=== PATIENT | male | born 1945 | race Caucasian/White ===

== ENCOUNTER → 2019-05-05 07:22 | Outpatient (CLI) | payer MEDICARE, SELFPAY ==
[2019-05-05 08:04] LABS: Add Manual Diff / Slide Review NO; Basophils Absolute Auto 0 /uL (0-100); Basophils Percent Auto 0.9 % (0-2); Eosinophils Absolute Auto 200 /uL (0-450); Eosinophils Percent Auto 3.6 % (2-4); Hematocrit 41.9 % (41-53); Hemoglobin 14.2 g/dL (13.5-17.5); Lymphocytes Absolute Auto 900 /uL (1100-4500); Lymphocytes Percent Auto 20.7 % (25-40); Mean Corpuscular HGB Conc 33.9 % (30-36); Mean Corpuscular Hemoglobin 28.8 PG (26-34); Monocytes Absolute Auto 500 /uL (0-900); Monocytes Percent Auto 12.1 % (3-14); Neutrophils Absolute Auto 2700 /uL (1500-7000); Neutrophils Percent Auto 62.7 % (50-75); Platelet Count 193 X10^3/uL (150-400); Red Blood Cell Count 4.93 X10^6/uL (4.5-5.9); Red Cell Distribution Width 14.8 % (11.6-14.8); White Blood Cell Count 4.2 X10^3/uL (4.5-11.0)
[2019-05-05 08:21] LABS: Alanine Aminotransferase 22 IU/L (<50); Albumin 3.7 g/dL (3.5-5.0); Albumin Globulin Ratio 1.4 (1.0-2.8); Alkaline Phosphatase 32 U/L (38-126); Aspartate Aminotransferase 29 IU/L (17-59); Bilirubin Total 0.5 mg/dL (0.2-1.3); Blood Urea Nitrogen 24 mg/dL (9-20); Calcium 8.9 mg/dL (8.4-10.2); Carbon Dioxide 31 mmol/L (22-32); Chloride 103 mmol/L (98-107); Cholesterol 259 mg/dL (140-199); Estimated Glomerular Filt Rate 58.9 mL/min (>60); Globulin 2.7 g/dL (1.7-4.1); Glucose 94 mg/dL (80-110); HDL Cholesterol 35 mg/dL (40-60); HEMOLYSIS < 15 (0-50); LDL Cholesterol Calculated 201 mg/dL (<100); Potassium 4.3 mmol/L (3.4-5.1); Sodium 138 mmol/L (137-145); Total Protein 6.4 g/dL (6.3-8.2); Triglycerides 114 mg/dL (35-150)
[2019-05-08 16:50] LABS: PSA, Total 0.8 ng/mL (< 4.1)
== END ==
PROVIDERS: Visit Provider Internal Medicine
DX: Z13.220 Encounter for screening for lipoid disorders (principal); Z13.9 Encounter for screening, unspecified; N40.1 Benign prostatic hyperplasia with lower urinary tract symptoms
CPT/HCPCS: 36415; 80053; 80061; 84153; 84154; 85025

== ENCOUNTER → 2020-10-06 16:13 | Outpatient (CLI) | payer MEDICARE, SELFPAY ==
[2020-10-06] MEDS: COVID-19 VACC #1, MRNA(PFIZER) 30 MCG/0.3 ML VIAL IM (16:22)
== END ==
PROVIDERS: Visit Provider Internal Medicine
DX: Z23 Encounter for immunization (principal)
CPT/HCPCS: 0001A; 91300

== ENCOUNTER → 2020-10-27 13:26 | Outpatient (CLI) | payer MEDICARE, SELFPAY ==
[2020-10-27] MEDS: COVID-19 VACC #2, MRNA(PFIZER) 30 MCG/0.3 ML VIAL IM (13:32)
== END ==
PROVIDERS: Visit Provider Internal Medicine
DX: Z23 Encounter for immunization (principal)
CPT/HCPCS: 0002A; 91300

== ENCOUNTER → 2020-11-10 10:20 | Outpatient (CLI) | payer MEDICARE, SELFPAY ==
--- NOTE | 2020-11-10 10:22 | DI.RAD.S_ITS ---
PROCEDURE: XR SHOULDER RT MIN 2V INDICATIONS: Right shoulder injury TECHNIQUE: 3 views of the shoulder were acquired. COMPARISON: None. FINDINGS: Bones: No fractures or dislocations. No suspicious bony lesions. Visualized ribs appear intact. Soft tissues: No suspicious soft tissue calcifications. IMPRESSION: No visualized acute fracture or dislocation. However, if clinical concern and/or pain persist, short interval imaging followup in 7-10 days is recommended, as occult injury cannot be definitively excluded. Dictated by: Bobbi Sultana M.D. on 11/10/2020 at 11:02 Approved by: Bobbi Sultana M.D. on 11/10/2020 at 11:03
[2020-11-10 11:32] LABS: Alanine Aminotransferase 21 IU/L (<50); Albumin 3.4 g/dL (3.5-5.0); Albumin Globulin Ratio 1.1 (1.0-2.8); Alkaline Phosphatase 29 U/L (38-126); Aspartate Aminotransferase 27 IU/L (17-59); Bilirubin Total 0.3 mg/dL (0.2-1.3); Bilirubin Unconjugated 0.3 mg/dL (0.0-1.1); Cholesterol 227 mg/dL (140-199); HDL Cholesterol 38 mg/dL (40-60); HEMOLYSIS < 15 (0-50); LDL Cholesterol Calculated 160 mg/dL (<100); Total Protein 6.4 g/dL (6.3-8.2); Triglycerides 146 mg/dL (35-150)
[2020-11-10 12:12] LABS: Vitamin D 25 Hydroxy (D3) 44.6 ng/mL (30.0-100.0)
== END ==
PROVIDERS: PCP Student in an Organized Health Care Education/Training Program; Referring Provider Student in an Organized Health Care Education/Training Program; Visit Provider Student in an Organized Health Care Education/Training Program
DX: I10 Essential (primary) hypertension (principal); E55.9 Vitamin D deficiency, unspecified; S49.91XA Unspecified injury of right shoulder and upper arm, initial encounter; X58.XXXA Exposure to other specified factors, initial encounter; Z13.220 Encounter for screening for lipoid disorders; Z79.899 Other long term (current) drug therapy
CPT/HCPCS: 36415; 73030; 80061; 80076; 82306

== ENCOUNTER 2021-02-19 11:53 | Emergency (ER) | payer MEDICARE, SELFPAY ==
[2021-02-19] VITALS (9 sets, daily range): BP systolic 140–186; BP diastolic 70–88; PULSE 61–82; RESP 17–18; TEMP 36.4–36.6; O2SAT 97–100; BMI 20.9
--- NOTE | 2021-02-19 11:59 | DI.CT.S_ITS ---
PROCEDURE: CT LUMBAR SPINE WO CON INDICATIONS: pain ground level fall TECHNIQUE: Noncontrast 3 mm thick sections acquired from the T12 level to the sacrum. Sagittal and coronal reformats were constructed. For radiation dose reduction, the following was used: automated exposure control. COMPARISON: None. FINDINGS: Image quality: Excellent. Bones: There is normal bony alignment. No acute vertebral body compression fractures. No suspicious lytic or blastic bony lesions. No pars defects. At the disc levels, disc space narrowing and Schmorl's nodes noted at L3-4, L4-5 and L5-S1. No significant central stenosis present throughout the exam. Soft tissues: No retroperitoneal masses or hematomas. Visualized aorta is normal in caliber. Left renal cortical cyst measures 4 cm IMPRESSION: Degenerative disc disease and arthropathy without evidence of fracture or malalignment. Approved by: Jack Mariee M.D. on 02/19/2021 at 12:30
--- NOTE | 2021-02-19 11:59 | DI.CT.S_ITS ---
PROCEDURE: CT HEAD/BRAIN WO CON INDICATIONS: fall TECHNIQUE: Noncontrast 4.5 mm thick angled axial sections acquired from the foramen magnum to the vertex, with coronal and sagittal reformats. For radiation dose reduction, the following was used: automated exposure control, adjustment of mA and/or kV according to patient size. COMPARISON: None. FINDINGS: Image quality: Excellent. CSF spaces: Basal cisterns are patent. No extra-axial fluid collections. The ventricles are symmetric in size and shape. Brain: No intracranial bleeds or masses. There is cerebral volume loss for age, with resultant ventricular and sulcal prominence. There are periventricular and deep white matter chronic small vessel ischemic changes. There is intracranial internal carotid artery atherosclerosis. Skull and face: Calvarium and visualized facial bones appear intact, without suspicious lesions. Sinuses: Visualized sinuses and mastoids are clear. IMPRESSION: Atrophy and chronic ischemic change without acute intracranial hemorrhage or mass effect. Approved by: Jack Mariee M.D. on 02/19/2021 at 11:57
--- NOTE | 2021-02-19 11:59 | DI.CT.S_ITS ---
PROCEDURE: CT CERVICAL SPINE WO CON INDICATIONS: fall TECHNIQUE: Noncontrast 3 mm thick sections acquired from the skull base to the T4 level. Sagittal and coronal reformats were then constructed. For radiation dose reduction, the following was used: automated exposure control, adjustment of mA and/or kV according to patient size. COMPARISON: None. FINDINGS: Image quality: Excellent. Bones: No fractures or dislocations. Visualized superior ribs are intact. There is disc space narrowing and facet arthropathy noted in the mid to lower cervical spine resulting in mild central and left foraminal stenosis at C5-6 as well as mild central and right foraminal stenosis at C6-7. Soft tissues: Prevertebral soft tissues are normal in thickness. No paravertebral hematomas. No apical pneumothoraces. IMPRESSION: No evidence of fracture or malalignment. Multilevel degenerative disc disease and arthropathy lower cervical spine results in mild central stenosis at C5-6 and C6-7. Approved by: Jack Mariee M.D. on 02/19/2021 at 11:55
--- NOTE | 2021-02-19 11:59 | DI.CT.S_ITS ---
PROCEDURE: CT THORACIC SPINE WO CON INDICATIONS: pain ground level fall TECHNIQUE: Noncontrast 3 mm thick sections acquired through the region of interest in the thoracic spine. Sagittal and coronal reformats were then constructed. For radiation dose reduction, the following was used: automated exposure control. COMPARISON: None. FINDINGS: Image quality: Excellent. Bones: There is normal overall bony alignment. No acute vertebral body compression fractures. No suspicious sclerotic or lytic bony lesions. Central spinal canal is of normal overall caliber. Degenerative changes noted at the cervical thoracic junction. Soft tissues: No paravertebral masses or hematomas. Visualized posteromedial lungs appear clear. IMPRESSION: Mild degenerative changes without fracture or malalignment. Approved by: Jack Mariee M.D. on 02/19/2021 at 12:24
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
[2021-02-19] MEDS: HYDROMORPHONE 0.5 MG INJ IV ×2 (12:12→13:52)
== END 2021-02-19 15:02 | disposition home or self-care (01) ==
PROVIDERS: Emergency Provider Emergency Medicine; PCP Student in an Organized Health Care Education/Training Program
DX: S09.90XA Unspecified injury of head, initial encounter (principal); S39.012A Strain of muscle, fascia and tendon of lower back, initial encounter; S01.01XA Laceration without foreign body of scalp, initial encounter; V89.2XXA Person injured in unspecified motor-vehicle accident, traffic, initial encounter
CPT/HCPCS: 12001; 36415; 70450; 72125; 72128; 72131; 96374; 96376; 99284; J1170

== ENCOUNTER 2023-01-19 11:30 | Emergency (ER) | payer MEDICARE, SELFPAY ==
[2023-01-19 11:38] VITALS: BP 150/78; PULSE 60; RESP 14; TEMP 36.6; O2SAT 99; BMI 20.7
--- NOTE | 2023-01-19 12:14 | ED.EYEPROB ---
HPI - Eye Problem <DAJA Velazquez - Last Filed: 01/19/23 12:33> General Chief complaint: Eye Problems Stated complaint: something in RT eye Time Seen by Provider: 01/19/23 12:12 Source: patient Mode of arrival: Ambulatory History of Present Illness HPI Narrative: This is a 77-year-old gentleman who presents to the emergency department complaining something in his right eye that started 2 nights ago. States that he rubbed it. States that he is had 2 days of eye watering and pain. Denies any known trauma, states that he probably got something in it and it has been painful and red since. Denies history recent illness. Denies discharge other than clear tears coming from the eye. Related Data Previous Rx's Medication Instructions Recorded pravastatin 20 mg tablet 20 mg PO BEDTIME #30 tabs 11/11/20 methocarbamol 750 mg tablet 750 mg PO Q8H PRN muscle spasm #14 02/19/21 tabs Allergies Allergy/AdvReac Type Severity Reaction Status Date / Time Penicillins AdvReac Mild Rash Verified 01/19/23 11:40 Review of Systems <DAJA Velazquez - Last Filed: 01/19/23 12:33> Review of Systems ROS Unobtainable: All systems reviewed & are unremarkable except as noted in HPI and below Patient History <DAJA Velazquez - Last Filed: 01/19/23 12:33> Social History Smoking Status: Never smoker Smoking Status: Never smoker alcohol intake frequency: holidays/special occasions only Substance Use Type: marijuana Exam <DAJA Vealzquez - Last Filed: 01/19/23 12:33> Narrative Exam Narrative: HEENT: Normocephalic, right eye with conjunctival injection, clear tears, fluorescein exam without foreign body, lids everted without foreign body or obvious fluorescein uptake. Punctate conjunctival uptake of fluorescein to the right lateral aspect. EOMI, PERRLA, no eye pain with eye movement Initial Vital Signs Initial Vital Signs: Vital Signs Temperature 97.9 F 01/19/23 11:38 Pulse Rate 60 01/19/23 11:38 Respiratory Rate 14 01/19/23 11:38 Blood Pressure 150/78 H 01/19/23 11:38 Pulse Oximetry 99 01/19/23 11:38 Oxygen Delivery Method Room Air 01/19/23 11:38 <Tawanda Rodriguez DO - Last Filed: 01/20/23 07:13> Initial Vital Signs Initial Vital Signs: Vital Signs Temperature 97.9 F 01/19/23 11:38 Pulse Rate 60 01/19/23 11:38 Respiratory Rate 14 01/19/23 11:38 Blood Pressure 150/78 H 01/19/23 11:38 Pulse Oximetry 99 01/19/23 11:38 Oxygen Delivery Method Room Air 01/19/23 11:38 Course <DAJA Velazquez - Last Filed: 01/19/23 12:33> Orders Ordered: Discontinued Medications Erythromycin (Erythromycin Ophth 1 Gm Oint) 1 applic EYE-RIGHT NOW ONE Stop: 01/19/23 12:13 Last Admin: 01/19/23 12:16 Dose: 1 applic Documented By: RB Fluorescein Sodium (Fluorescein 1 Mg Strip) 1 mg EYE-LEFT NOW ONE Stop: 01/19/23 12:13 Last Admin: 01/19/23 12:16 Dose: 1 mg Documented By: RB Proparacaine HCl (Proparacaine 0.5% Ophth Opal) 1 drops EYE-RIGHT NOW ONE Stop: 01/19/23 12:13 Last Admin: 01/19/23 12:16 Dose: 1 drop Documented By: RB Vital Signs Vital signs: Vital Signs - 8 hr 01/19/23 11:38 Temperature 97.9 F Pulse Rate 60 Respiratory Rate 14 Blood Pressure 150/78 H Pulse Oximetry 99 Oxygen Delivery Method Room Air <Tawanda Rodriguez DO - Last Filed: 01/20/23 07:13> Orders Ordered: Discontinued Medications Erythromycin (Erythromycin Ophth 1 Gm Oint) 1 applic EYE-RIGHT NOW ONE Stop: 01/19/23 12:13 Last Admin: 01/19/23 12:16 Dose: 1 applic Documented By: RB Fluorescein Sodium (Fluorescein 1 Mg Strip) 1 mg EYE-LEFT NOW ONE Stop: 01/19/23 12:13 Last Admin: 01/19/23 12:16 Dose: 1 mg Documented By: RB Proparacaine HCl (Proparacaine 0.5% Ophth Opal) 1 drops EYE-RIGHT NOW ONE Stop: 01/19/23 12:13 Last Admin: 01/19/23 12:16 Dose: 1 drop Documented By: RB Vital Signs Vital signs: Vital Signs - 8 hr 01/19/23 11:38 Temperature 97.9 F Pulse Rate 60 Respiratory Rate 14 Blood Pressure 150/78 H Pulse Oximetry 99 Oxygen Delivery Method Room Air MDM - Eye Problem <Kellie Crandall, [employer] - Last Filed: 01/19/23 12:33> MDM Narrative Medical decision making narrative: Chief Complaint: Foreign body sensation to the right eye Multiple etiologies for patient's complaint considered including, but not limited to: Conjunctival abrasion, corneal abrasion foreign body in cornea, conjunctivitis, iritis I have independently reviewed the patient's vital signs and nursing notes as well as prior records if available. Plan: Fluorescein exam with Wood's lamp Use proparacaine and fluorescein with Wood's lamp, very tiny punctate abrasion to the right lateral conjunctiva without foreign body on exam, no corneal abrasion or fluorescein uptake, everted upper lid and lower lid without abnormal discharge, conjunctiva is mildly injected on the right Course of Care: Patient has follow-up with Dr. Larios from [place] and will head straight to that appointment following this visit. He was given erythromycin ointment for lubricant as well as infection prevention, this will treat conjunctivitis if that is the ultimate diagnosis. Pupils are equal and reactive, EOMI, no eye pain with eye movement. Social considerations that may affect disposition: none Questions are addressed and there is agreement with the plan and for follow-up. I consulted with the ED attending physician Dr. Rodriguez as needed for higher level of care considerations and they were available for discussion and recommendations regarding plan of care and diagnostic testing. Patient is appropriate for outpatient management. Discharge Plan Departure Patient Disposition: Home Clinical Impression: Sensation of foreign body in eye Right eye injury Qualifiers: Encounter type: initial encounter Qualified Code(s): S05.91XA - Unspecified injury of right eye and orbit, initial encounter Instructions: Corneal Abrasion, DI for Foreign Body in the Eye Activity Restrictions/Additional Instructions: *You have been diagnosed with an injury to the right eye with sensation of a foreign body, I saw a very mild conjunctival abrasion with fluorescein uptake but no other injuries noted on the brief Wood's lamp exam. Please use the erythromycin ointment 4 times a day for the next 5 days to protect the cornea for a small scratch. Follow-up at the chief safety officer's office for further evaluation before the weekend. I wish you the best, thank you for your patience today, take care. *What to do: *Please continue to take your regular medications as directed. [ ] New medication prescriptions sent to your pharmacy: [ ] [ ] New medication written as a paper prescription [x ] No new medications given Please call and schedule follow up with your primary care provider in 2-3 days, at least for an update. Let them know you were seen in the Emergency Department for the above problem. We will electronically transmit a record of today's note if your PCP or specialist is in our system. *If you do not have a primary care provider please contact [phone] to establish care with one of the [facility] primary care providers. *Return to the Emergency Department for worsening symptoms, inability to keep liquids down, fever greater than 101F, chills, or other concerning symptom. Prescriptions: No Action pravastatin 20 mg tablet 20 mg PO BEDTIME Qty: 30 0RF methocarbamol 750 mg tablet 750 mg PO Q8H PRN (Reason: muscle spasm) Qty: 14 0RF Referrals: Rodolfo Ramos MD [Primary Care Provider] - Sreekanth Larios MD [Physician] - Stand Alone Forms: Patient Portal/API <Tawanda Rodriguez DO - Last Filed: 01/20/23 07:13> Cosign ED Attending Juan Cature Attestation: I was immediately available in the department for consultation. Documentation has been reviewed. I agree with assessment and plan.
[2023-01-19] MEDS: PROPARACAINE 0.5% OPHTH SOL 1 DROPS EYE-RIGHT (12:16)
[2023-01-19] MEDS: ERYTHROMYCIN OPHTH 1 GM OINT 1 APPLIC EYE-RIGHT (12:16)
[2023-01-19] MEDS: FLUORESCEIN 1 MG STRIP EYE-LEFT (12:16)
[2023-01-19 12:30] VITALS: BP 146/70; PULSE 64; RESP 15; O2SAT 98
== END 2023-01-19 12:31 | disposition home or self-care (01) ==
PROVIDERS: Emergency Provider Nurse Practitioner Critical Care Medicine; PCP Student in an Organized Health Care Education/Training Program
DX: S05.01XA Injury of conjunctiva and corneal abrasion without foreign body, right eye, initial encounter (principal); X58.XXXA Exposure to other specified factors, initial encounter; Y93.89 Activity, other specified; Y92.9 Unspecified place or not applicable
CPT/HCPCS: 99282; 99283